=== PATIENT | male | born 1990 | race Caucasian/White ===

== ENCOUNTER 2017-02-19 13:53 | Inpatient (IN) | payer OTHER ==
[~2017-02-19] VITALS: Ht 172.7 cm; Wt 91.7 kg
[~2017-02-19 13:53] MED LIST: No Historical Meds
[2017-02-19] MEDS ORDERED: SERO1TAB PO (14:17)
[2017-02-19] MEDS ORDERED: ZOLO100T PO (14:17)
[2017-02-19 14:43] LABS: METHADONE URINE NEGATIVE (NEGATIVE)
[2017-02-19 14:44] LABS: MEAN CORPUSCULAR HEMOGLOBIN 31.5 pg (27.0-33.0); MEAN CORPUSCULAR HGB CONC 35.3 g/dl (32.0-36.5); MEAN CORPUSCULAR VOLUME 89.3 fl (80.0-96.0); RED CELL DISTRIBUTION WIDTH 13.4 % (11.5-14.5); WHITE BLOOD COUNT 15.9 K/mm3 (4.0-10.0)
[2017-02-19 15:07] LABS: ALBUMIN/GLOBULIN RATIO 1.18 (1.00-1.93); ALKALINE PHOSPHATASE 98 U/L (45-117); ALT/SGPT 77 U/L (12-78); ANION GAP 9 MEQ/L (8-16); AST/SGOT 39 U/L (15-37); BILIRUBIN,DIRECT 0.1 MG/DL (0.0-0.2); BILIRUBIN,TOTAL 0.4 MG/DL (0.2-1.0); BLOOD UREA NITROGEN 6 MG/DL (7-18); CALCIUM LEVEL 9.2 MG/DL (8.5-10.1); CARBON DIOXIDE LEVEL 25 MEQ/L (21-32); CHLORIDE LEVEL 107 MEQ/L (98-107); CREATININE FOR GFR 0.83 MG/DL (0.70-1.30); GLOMERULAR FILTRATION RATE > 60.0 (>60); GLUCOSE, FASTING 92 MG/DL (70-105); POTASSIUM SERUM 3.4 MEQ/L (3.5-5.1); SODIUM LEVEL 141 MEQ/L (136-145); TOTAL PROTEIN 7.4 GM/DL (6.4-8.2)
[2017-02-19] MEDS ORDERED: MOM 30ML SUSPENSION UDC PO PRN (16:15)
[2017-02-19] MEDS ORDERED: ACETAMINOPHEN TAB 650MG DOSE (2X325MG) PO PRN (16:15)
[2017-02-19] MEDS ORDERED: MAALOX 30 ML SUSP *UDC PO PRN (16:15)
[2017-02-19 16:56] VITALS: BP 140/90
[2017-02-19] MEDS: QUEtiapine FUMARATE 100 MG TAB PO SCH (22:06)
[2017-02-20 06:46] VITALS: BP 136/78
[2017-02-20] MEDS: SERTRALINE 100 MG TAB PO SCH (08:07)
[2017-02-20] MEDS: NICOTINE 21MG/24HR 1 EA TRANSDERMAL TD SCH (08:07)
[2017-02-20] MEDS: QUEtiapine FUMARATE 100 MG TAB PO SCH (08:07)
[2017-02-20] MEDS ORDERED: SERTRALINE 100 MG TAB PO SCH (09:00)
--- NOTE | 2017-02-20 15:03 | MHHPE ---
DATE OF ADMISSION: 02/19/2017 LEGAL STATUS AT ADMISSION: 9.39 legal status. 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 According to the record, the patient presented with a escort from [place], [place], to be evaluated for depression, suicidal ideation, and self-inflicted behavior. It is stated that he cut himself the left arm from wrist to elbow multiple times, and he was burning his right lower leg with cigarettes. During the interview today, the patient is partially cooperative. Appears angry, guarded, with poor eye contact, very soft monotone speech. Reports depression and frequent suicidal ideation and admits his self-inflicted behavior, cutting and burning his upper and lower extremities. He describes the events at admission as "I snapped at 10:30 p.m. Saturday. I started to think about killing myself. I got into the car and was searching for a place to kill myself. I called my , and after talking to her, I changed my mind, I went to a hospital, and I called my chain of command." During the interview, the patient is showing signs and symptoms of cluster B personality traits. The patient reports his energy being more or less normal, having no variation of the appetites. Sleep is very poor, by his report, waking up very frequent. He reports his self-esteem being normal. Overall, the patient's description of symptoms does not appear to be reliable. The patient appeared to be angry. He made statements such as "I'm not going to these stupid groups." "I don't like to be playing with my medication." "Things has not worked in the past." During the interview, there is no evidence of auditory or visual hallucinations, delusions, or any psychotic features. PAST MEDICAL HISTORY: The patient denies any acute medical problem. PAST PSYCHIATRIC HISTORY: The patient has been diagnosed of depression. The patient says that at one point, he was placed on Depakote but had to be stopped because of side effects and weight gain. The patient has never been on Lamictal. FAMILY HISTORY: The patient reports that both of his parents have been diagnosed of bipolar disorder. He has a sister who has anxiety and a brother who uses drugs. SUBSTANCE ABUSE HISTORY: The patient denies any current of past problem with drugs or alcohol. The patient says that he drinks at times but denies that this is a problem. SOCIAL HISTORY: The patient reports being raised by both parents. Denies any abuse or neglect. The patient denies any problems with socialization or ability to make friends. He reports that school was normal with average grades. He is with five children. Has a 6-year-old and 3-year-old daughter and triplets (they are boys and they are 1 year of age). The patient reports that has good support and gets along well with his chain of command. PSYCHIATRIC REVIEW OF SYSTEMS: Depression and mood disorder. The patient reports depression, insomnia, low energy. The patient has psychomotor retardation and suicidal thoughts. No evidence of davide. No distractibility, grandiosity, flight of ideas, pressured speech, or increased activity. Substance abuse disorder: The patient answers negative to the CAGE questionnaire. Anxiety disorder: The patient reports anxiety but denies symptoms of panic, agoraphobia, obsessive-compulsive disorder. The patient denies washing his hands repeatedly or checking things over and over. Somatization disorder: Screening for pain, conversion, gastrointestinal (GI), or sexual symptoms are negative. Eating disorder: Screening for dieting, use of laxatives, eating in binges is negative. Dementia/cognitive disorder: Screening for short- and long-term memory, orientation, and general information is negative for cognitive impairment. Psychotic disorder: There is no evidence of delusions, paranoia, grandiosity, or tenriism preoccupation. No hallucinations or looseness of associations. PHYSICAL EXAMINATION: As per physician doctor assistant. LABORATORIES AT ADMISSION: CBC shows white blood cells of 15.9, the rest within normal limits. CMP shows a potassium of 3.4, the rest within normal limits, except AST of 39. Urine drug screen was positive for benzodiazepine. Blood alcohol level is negative. MENTAL STATUS EXAMINATION: The patient is dressed in [facility]. The patient is partially cooperative. Speech is soft and monotone. Has poor eye contact. Mood is anxious and depressed. Affect is restricted, guarded. The patient is oriented to time, place, person, and situation. Maintains attention and concentration fairly. Instant recall, recent and remote memory are intact. Thought processes are coherent, logical, and goal-directed. The patient does not have auditory or visual hallucinations. The patient does not have paranoid, persecutory, somatic, grandiose, or tenriism delusions. The patient is reporting suicidal thoughts but no homicidal ideation. Judgment and insight are poor. DIAGNOSES: AXIS I: Unspecified depressive disorder, rule out major depressive disorder verus bipolar disorder, depressed episode. AXIS II: Rule out borderline personality disorder. AXIS III: Self-inflicted cuts on arms and self-inflicted pastor on right lower extremities. INITIAL TREATMENT PLAN: The patient was admitted on a 9.39 legal status. Complete history was obtained. With his permission, family will be contacted, and database will be expanded. His medication regimen will be reviewed and changed accordingly. He will be provided with protected environment. He will be treated with individual, group, and milieu therapies. He will also be provided with supportive psychoeducation. Discharge planning will commence immediately. Length of stay will be between3 and 7 days. Outpatient followup will be strongly recommended. The treatment plan will focus initially on depression, risk for suicide, and poor impulse control.
[2017-02-20 18:00] VITALS: BP 141/69
[2017-02-20] MEDS: QUEtiapine FUMARATE 200 MG TAB PO SCH (21:06)
[2017-02-20] MEDS: OXcarbazepine 150 MG TAB PO SCH (21:06)
[2017-02-20] MEDS: lamoTRIgine 25 MG TAB PO SCH (21:06)
--- NOTE | 2017-02-20 23:39 | HPE ---
DATE OF ADMISSION: 02/19/2017 HISTORY OF PRESENT ILLNESS: Please refer to psychiatric history and evaluation for further details on this admission. This examination and history is intended for medical issues, which may need treatment, followup, or consult on this 26-year-old male. FOOD ALLERGIES: Peppers. DRUG ALLERGIES: Haloperidol. PRIMARY CARE PROVIDER: [facility]. 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 EtOH (ethanol) on weekends. Smokes one pack of cigarettes per day. Recreational drug use: None. PAST MEDICAL HISTORY: Depression. PAST SURGICAL HISTORY: Negative. HOME MEDICATIONS: - Seroquel 100 mg by mouth twice a day - Zoloft 200 mg by mouth daily FAMILY HISTORY: Noncontributory. LABORATORY STUDIES: WBC 15.1, hemoglobin 16.1, hematocrit 45.5. Sodium 144, potassium 3.4, chloride 107, CO2 of 25, BUN 10, creatinine 6, AST 39, ALT 77. Urine was positive for benzodiazepines. REVIEW OF SYSTEMS: A 10-systems review was done. He complained of some pastor of the right lower leg and lacerations to the left inner forearm. Otherwise no complaints, unremarkable. PHYSICAL EXAMINATION: A 26-year-old cooperative male in no acute distress. Height 68 inches, weight 91.6 kg, body mass index (BMI) 30.7, temperature 97.9, pulse 91, respirations 18, blood pressure 132/86. Patient is alert and oriented times three. Pupils equal and reactive to light. Extraocular movements (EOMs) intact. Corneae and sclerae clear. Conjunctivae are normal. No facial asymmetry. Pharynx, tongue, gums pink and moist. Tongue is midline. Neck is supple without lymphadenopathy. No thyromegaly. No goiter. Chest clear to auscultation without wheeze or retraction. Heart is regular. Abdomen benign. Bowel sounds positive. Genitourinary/rectal not done. Extremities show equal strength, full range of motion. No cyanosis, clubbing, or edema. Peripheral pulses equal and palpable bilaterally. Skin: Left inner forearm has numerous scabbed superficial lacerations. No redness or drainage. Right lower leg anterior and calf area have approximately 8 cigarette pastor in various stages of healing. No drainage. Peripheral pulses equal and palpable bilaterally. IMPRESSION AND PLAN: Left upper arm superficial lacerations. Monitor for infection. Cigarette pastor, right lower legs. Bacitracin ointment twice a day. Monitor for infection. Psychiatric plan per psychiatry.
[2017-02-21 06:17] VITALS: BP 134/75
[2017-02-21 07:46] LABS: BASO # 0.1 K/mm3 (0.0-0.2); BASO % 0.8 % (0.0-1.0); EOS # 0.3 K/mm3 (0.0-0.50); LARGE UNSTAINED CELL # 0.2 K/mm3 (0.0-0.4); LARGE UNSTAINED CELL % 1.6 % (0.0-4.0); LYMPH # 2.3 K/mm3 (1.5-6.5); LYMPH % 19.6 % (24.0-44.0); MEAN CORPUSCULAR HEMOGLOBIN 31.5 pg (27.0-33.0); MEAN CORPUSCULAR HGB CONC 35.5 g/dl (32.0-36.5); MEAN CORPUSCULAR VOLUME 88.7 fl (80.0-96.0); MONO # 0.6 K/mm3 (0.0-0.8); MONO % 5.6 % (0.0-5.0); NEUTROPHILS # 7.6 K/mm3 (1.8-7.7); NEUTROPHILS % 69.5 % (36.0-66.0); PLATELET COUNT, AUTOMATED 245 k/mm3 (150-450); RED CELL DISTRIBUTION WIDTH 13.5 % (11.5-14.5)
[2017-02-21 08:18] LABS: ALBUMIN 3.7 GM/DL (3.2-5.2); ALBUMIN/GLOBULIN RATIO 1.12 (1.00-1.93); ALKALINE PHOSPHATASE 87 U/L (45-117); ALT/SGPT 77 U/L (12-78); ANION GAP 5 MEQ/L (8-16); AST/SGOT 46 U/L (15-37); BILIRUBIN,TOTAL 0.5 MG/DL (0.2-1.0); BLOOD UREA NITROGEN 13 MG/DL (7-18); CALCIUM LEVEL 8.9 MG/DL (8.5-10.1); CARBON DIOXIDE LEVEL 26 MEQ/L (21-32); CHLORIDE LEVEL 111 MEQ/L (98-107); CREATININE FOR GFR 0.82 MG/DL (0.70-1.30); GLOMERULAR FILTRATION RATE > 60.0 (>60); GLUCOSE, FASTING 82 MG/DL (70-105); POTASSIUM SERUM 4.3 MEQ/L (3.5-5.1); SODIUM LEVEL 142 MEQ/L (136-145)
[2017-02-21] MEDS: SERTRALINE 100 MG TAB PO SCH (08:33)
[2017-02-21] MEDS: OXcarbazepine 150 MG TAB PO SCH ×2 (08:33→20:22)
[2017-02-21] MEDS: NICOTINE 21MG/24HR 1 EA TRANSDERMAL TD SCH (08:44)
--- NOTE | 2017-02-21 15:30 | IPN ---
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 The patient stated that he was driving with his car, looking for a spot where he could kill himself. SUBJECTIVE: "I don't want my medication changed." OBJECTIVE: No major changes from yesterday. The patient has been showing cluster B traits. Patient appears angry and frustrated. Patient is not interacting with anybody. He is unwilling to go to groups, unwilling to engage in conversation or psychotherapy. Patient is only focused on discharge. Patient states that he came in voluntarily and he would like to go home. Patient appears depressed with sad, restricted facial expression and psychomotor retardation. I told the patient that I was going to ask the [facility] liaison to stop by and talk to him. MENTAL STATUS EXAMINATION: Patient is dressed in [facility]. Poor eye contact. Speech is poor, not invested in conversation. Mood is depressed and anxious. Affect is restricted, labile, appears angry and frustrated. No evidence of delusions or hallucinations. Could not test attention, concentration, and memory. Patient is minimizing all the events that led to the admission and is denying suicidal or homicidal ideation, but he stated during the first interview that he was driving with his car, looking for a spot where he could kill himself. Insight and judgment is poor. ASSESSMENT: 1. Depression. 2. Suicidal ideation. 3. Personality traits. PLAN: 1. Lamictal 25 mg by mouth nightly. The plan is to increase the Lamictal slowly up to therapeutic level. 2. Trileptal 75 mg by mouth twice a day. Since Lamictal is going to take a long time to be at therapeutic level, will use Trileptal in the meantime and then taper and discontinue. 3. Seroquel 200 mg by mouth nightly. Patient has slept better with Seroquel 200 nightly. He was taking 100 mg by mouth twice a day, but says that one of the problems was insomnia. 4. Zoloft 200 mg by mouth every morning. He has been on Zoloft for quite some time. He will evaluate the patient again and probably switch to another antidepressant agent. 5. Continue medication management, individual and group therapy as tolerated by patient.
[2017-02-21 18:03] VITALS: BP 128/60
[2017-02-21] MEDS: QUEtiapine FUMARATE 200 MG TAB PO SCH (20:22)
[2017-02-21] MEDS: lamoTRIgine 25 MG TAB PO SCH (20:22)
[2017-02-22 06:13] VITALS: BP 121/74
[2017-02-22] MEDS: OXcarbazepine 150 MG TAB PO SCH ×2 (08:44→20:50)
[2017-02-22] MEDS: SERTRALINE 100 MG TAB PO SCH (08:44)
[2017-02-22 18:00] VITALS: BP 129/62
[2017-02-22] MEDS: QUEtiapine FUMARATE 200 MG TAB PO SCH (20:50)
[2017-02-22] MEDS: lamoTRIgine 25 MG TAB PO SCH (20:50)
--- NOTE | 2017-02-22 22:54 | IPN ---
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 The patient stated that he was driving his car looking for a stop where he could kill himself. SUBJECTIVE: "When am I going home?" OBJECTIVE: The patient is slightly more open for conversation, although his focus is on discharge issues only. The patient is reporting significant improvement and denies suicidal ideation; however, he is not reliable. His facial expression is restricted. He has psychomotor retardation. He has been going to some psychotherapeutic activities in the unit. His came for a visit yesterday and she said that the patient had two rough deployments and that the only time he is able to talk about the deployments is when he is intoxicated with alcohol. During the interview, there is no evidence of psychotic symptoms. The patient continues to be guarded and it is difficult to get objective information from him. MENTAL STATUS EXAMINATION: The patient is dressed in [facility]. Has poor eye contact. Speech is poor, soft and monotone. Mood is depressed and anxious. Affect is restricted. The patient appears angry and frustrated, although has improved slightly from yesterday. There is no evidence of delusions or hallucinations. Could not test attention, concentration and memory. The patient is minimizing all the events that led to the admission. Denies suicidal or homicidal ideations, but he is focused on discharge and is not reliable. Insight and judgment are poor. ASSESSMENT: 1. Depression. 2. Suicidal ideation. 3. Personality traits. PLAN: 1. Continue with Lamictal 25 mg by mouth at bedtime. The plan is to increase Lamictal up to a therapeutic level. 2. Continue Trileptal 75 mg by mouth twice a day. This medication will be tapered when Lamictal is increased to a therapeutic level. 3. Continue Seroquel 200 mg by mouth at bedtime. 4. Continue Zoloft 200 mg by mouth every morning. 5. Continue medication management, individual and group therapy.
[2017-02-23 06:37] VITALS: BP 119/56
[2017-02-23] MEDS: SERTRALINE 100 MG TAB PO SCH (08:51)
[2017-02-23] MEDS: OXcarbazepine 150 MG TAB PO SCH ×2 (08:51→20:13)
[2017-02-23 18:01] VITALS: BP 133/64
[2017-02-23] MEDS: lamoTRIgine 25 MG TAB PO SCH (20:12)
[2017-02-23] MEDS: QUEtiapine FUMARATE 200 MG TAB PO SCH (20:12)
[2017-02-24 06:42] VITALS: BP 96/48
[2017-02-24] MEDS: SERTRALINE 100 MG TAB PO SCH (08:10)
[2017-02-24] MEDS: OXcarbazepine 150 MG TAB PO SCH ×2 (08:10→20:31)
--- NOTE | 2017-02-24 11:28 | IPN ---
DATE OF SERVICE: 02/23/2017 The patient today states "I'm feeling better." He says his mood is 2/10, where the closer to 10 is the most depressed. He says he is not feeling depressed, and he is sleeping good at this point, and denies being suicidal. MENTAL STATUS EXAMINATION: This patient is alert and oriented times three. Eye contact is fair. Psychomotor activity is normal. He is verbally spontaneous. There is no formal thought disorder noted. His mood is good and affect full range and appropriate. He is not psychotic, suicidal, or homicidal. Concentration is fair. Memory intact. Insight and judgment is fair. DIAGNOSIS: Unspecified depressive disorder. TREATMENT PLAN: At this point, the patient will be further observed and evaluated for continued stabilization of his mood and continued resolution of suicidal ideations. ASHLEY
[2017-02-24] MEDS ORDERED: AZITHROMYCIN 250 MG TAB PO ONE (16:30)
[2017-02-24 18:00] VITALS: BP 154/85
[2017-02-24] MEDS: lamoTRIgine 25 MG TAB PO SCH (20:31)
[2017-02-24] MEDS: QUEtiapine FUMARATE 200 MG TAB PO SCH (20:31)
[2017-02-24] MEDS ORDERED: DOXYCYCLINE HYCLATE 100 MG TAB PO SCH (21:00)
--- NOTE | 2017-02-25 03:36 | IPN ---
DATE OF SERVICE: 02/24/2017 The patient states that he is doing good. He has no complaints. He said he slept well. MENTAL STATUS EXAMINATION: He is alert and oriented times three. Eye contact is very good. Psychomotor activity is normal. There is no formal thought disorder. Mood is good. Affect is full range and appropriate. He is not psychotic, suicidal, homicidal. Concentration is fair. Memory is intact. Insight and judgment is fair. DIAGNOSIS: Unspecified depressive disorder. TREATMENT PLAN: At this point, the patient is fairly stable and we will continue to monitor him for continued stabilization of his mood and for continued resolution of his suicidal ideations.
[2017-02-25] MEDS: OXcarbazepine 150 MG TAB PO SCH (08:23)
[2017-02-25] MEDS: SERTRALINE 100 MG TAB PO SCH (08:23)
[2017-02-25] MEDS: NICOTINE POLACRILEX 2 MG GUM PO PRN ×3 (15:47→22:24)
[2017-02-25 18:00] VITALS: BP 138/68
[2017-02-25] MEDS: QUEtiapine FUMARATE 200 MG TAB PO SCH (20:11)
[2017-02-25] MEDS ORDERED: lamoTRIgine 25 MG TAB PO SCH (21:00)
--- NOTE | 2017-02-25 21:11 | IPN ---
DATE: 02/25/2017 VITAL SIGNS: Temperature 98.7, pulse 89, respirations 16, blood pressure 154/85. CURRENT MEDICATIONS: - Trileptal 75 mg twice a day - Lamictal 25 mg nightly - Seroquel 200 mg nightly - Zoloft 200 mg every morning LABORATORY DATA: Urine screen on 02/19/2017, was negative except for positive for benzodiazepines. 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 Patient had been working at [place], [place] with his [employer] unit but had developed depression and had a suicide attempt to cut himself on his left arm multiple times. He was also burning his right lower leg with cigarettes. Patient was quite angry and guarded at the time of admission. Patient was seen by Dr. Renae. Patient has a history of major depression, treated at [facility] on the Seroquel and Zoloft combination. Patient had gone off the medications temporarily while down at [place], which only made his depression worse. Dr. Renae restarted the Seroquel and Zoloft, but also added Trileptal and Lamictal. Patient has been oppositional here in the hospital milieu. He has attended a few groups, but in general has been refusing to attend the various therapy group offerings. Patient does have a history of severe depressive episodes in the past where he has tried to hang himself or taken overdoses at least four different times. He has been hospitalized at [facility] and [facility] in the past. He was on Depakote at that time which caused a 40 pound weight gain. Both of his parents have been diagnosed with bipolar but the patient himself denies any history of manic episodes. He denies any history of racing thoughts. Patient reports his psychiatrist is Lieutenant Colonel Dr. Turk, who was contacted at [phone] Turk last saw the patient in November, at which point in time the patient had been doing reasonably well on the combination Seroquel and Zoloft. The patient is quite oppositional here in the unit, refusing to cooperate with the hospital milieu, despite being a soldier and under orders. Patient has shown poor judgment on the unit by cursing at staff, including myself, and refusing to cooperate, but has not shown any homicidal or suicidal behavior. Patient appears to have reached maximal hospital benefit. He claims he will discontinue the Lamictal and Trileptal once he is discharged. The patient is advised that I am discontinuing the Trileptal but that I would recommend that he be maintained on the Lamictal. He is warned about the risk of Rodrigues-Reed syndrome. MENTAL STATUS EXAMINATION: At the time of discharge, the patient is alert and oriented, but he is not cooperative. He is irritable, showing poor judgment. He is cursing. He demands discharge. He appears entitled. He storms out of my office, slamming the door, cursing me both in the office and out in the hospital corridor. He denies any psychotic symptoms. No signs of hallucinations, paranoia, delusional beliefs, or thought disorder. Insight appears poor. Judgment appears poor, but no acute signs of dangerousness. No signs of organicity. Grooming and hygiene appear good. DIAGNOSES: 1. Major depression, recurrent, moderate severity. 2. Personality disorder. ASSESSMENT: While the patient could benefit from further inpatient care due to his poor attitude and oppositional defiant behavior, he is no longer appropriate for our unit. Patient is not currently a danger to self or others, so may be released to the care of the outpatient facility at [place]. Staff will [place] Patient's Trileptal to be weaned off. Patient will discuss with Dr. Turk whether to continue the Lamictal or discontinue it.
[2017-02-26 06:22] VITALS: BP 127/60
[2017-02-26 06:55] LABS: MEAN CORPUSCULAR HEMOGLOBIN 31.9 pg (27.0-33.0); MEAN CORPUSCULAR VOLUME 91.2 fl (80.0-96.0); RED CELL DISTRIBUTION WIDTH 13.2 % (11.5-14.5); WHITE BLOOD COUNT 10.8 K/mm3 (4.0-10.0)
[2017-02-26 07:12] LABS: ALBUMIN 3.7 GM/DL (3.2-5.2); ALBUMIN/GLOBULIN RATIO 1.09 (1.00-1.93); ALKALINE PHOSPHATASE 84 U/L (45-117); ALT/SGPT 57 U/L (12-78); ANION GAP 4 MEQ/L (8-16); AST/SGOT 23 U/L (15-37); BILIRUBIN,TOTAL 0.2 MG/DL (0.2-1.0); BLOOD UREA NITROGEN 9 MG/DL (7-18); CALCIUM LEVEL 8.6 MG/DL (8.5-10.1); CARBON DIOXIDE LEVEL 28 MEQ/L (21-32); CHLORIDE LEVEL 108 MEQ/L (98-107); CREATININE FOR GFR 0.86 MG/DL (0.70-1.30); GLOMERULAR FILTRATION RATE > 60.0 (>60); GLUCOSE, FASTING 88 MG/DL (70-105); POTASSIUM SERUM 3.9 MEQ/L (3.5-5.1); SODIUM LEVEL 140 MEQ/L (136-145); TOTAL PROTEIN 7.1 GM/DL (6.4-8.2)
[2017-02-26] MEDS: SERTRALINE 100 MG TAB PO SCH (08:25)
[2017-02-26] MEDS: NICOTINE POLACRILEX 2 MG GUM PO PRN (08:26)
[2017-02-26] MEDS ORDERED: LAMI25TA PO (08:34)
[2017-02-26] MEDS ORDERED: OXcarbazepine 150 MG TAB PO SCH (09:00)
--- NOTE | 2017-02-27 14:02 | MHDS ---
DATE OF ADMISSION: 02/19/2017 DATE OF DISCHARGE: 02/26/2017 VITAL SIGNS: Temperature 98.0, pulse 66, respirations 20, blood pressure 127/60. LABORATORY DATA: CBC and differential within normal limits except for a WBC elevated at 10.8. Chemistry is normal except for elevated chloride at 108. The patient's anion gap is low at 4. The patient had two elevated AST levels at 39 and 46 on 02/19 and 02/21/2017. Repeat on 02/26/2017 was 23, which is within normal limits. DISCHARGE DIAGNOSES: 1. Depression, recurrent and moderate severity. 2. Mixed personality disorder. DISCHARGE MEDICATIONS: - Lamictal 25 mg two tablets at night - Seroquel 100 mg twice a day - Zoloft 200 mg daily CHIEF COMPLAINT: The patient cut his left arm multiple times and burned his right lower leg with cigarettes. 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 As mentioned above, he cut his left arm multiple times and burned his right lower leg with cigarettes. The patient was quite angry at the time of admission. He was guarded. He had poor eye contact. The patient did report a history of frequent depression and suicidal ideation. The patient claims that he "snapped." The patient does have a history of depression. He was in treatment at [facility] and [facility] in the past and placed on Depakote at that time. The patient had a 40 pound weight gain on that product so it was discontinued. He claims that it was not helpful for his mental status functioning. He is currently seeing a psychiatrist, Dr. Lieutenant Colonel Turk, who was contacted to coordinate care. Dr. Turk last saw the patient in November. The patient was stable at that time. The patient found being stationed at [place] very stressful. He was away from his friends and family. He has been having some marital conflict. He stopped his medications, claiming that they no longer worked and promptly his condition worsened leading to the events mentioned above. PROGRESS ON THE UNIT: The patient was seen by Dr. Renae at the time of admission. He was continued on his Seroquel but it was switched to 200 mg by mouth at night. Zoloft was maintained at current dosage. The patient was added Trileptal 75 mg twice a day. The patient was also given Lamictal 25 mg at night. The patient was quite oppositional on the unit. He isolated. He did not become involved in the hospital milieu. He was resistant to changes in his medication, claiming that his outpatient psychiatrist could manage his medications. When the patient was seen by myself on 02/25/2017 for the first time, the patient was quite oppositional and defiant. He demanded discharge, claiming that he had showed no signs of dangerousness while on the unit. When informed that no discharge date could be set up until I coordinated care with his outpatient psychiatrist, he started shouting profanities, storming out of my office and slamming the door. Staff reported that he continued to swear and use profanities toward the nursing staff afterwards. Dr. Turk was available by phone later on that day and issued no objection to accepting the patient back to outpatient services. The indication for the Trileptal was unclear so that medication was weaned off. The patient's Lamictal was increased to 50 mg at night. The patient is educated as to risk of Sid-Reed syndrome. The patient claimed that he would stop the Lamictal upon discharge. He was urged to continue on it and discuss the Lamictal with his psychiatrist. The patient did apologize to me today for his behavior from yesterday. He reported that taking the Seroquel 100 mg in the morning helps him with his irritability and his temper control. MENTAL STATUS EXAMINATION: The patient is alert and oriented. He is highly irritable and agitated the day before discharge. However, on the day of discharge, he was more modulated and in control of his temper. He denied any racing thoughts. He denies being depressed. Denied being homicidal or suicidal. Anxiety was minimal. Insight appeared fair. Judgment appeared fair. No current signs of impulsivity of dangerousness. No signs of psychosis. Not hearing voices. No paranoid or thought disorder. No signs of organicity. Grooming and hygiene appeared good. ASSESSMENT: The patient appears to have reached maximal hospital benefit. He appeared to have significant behavioral issues, which prevented our unit from providing more intensive treatment. As the patient showed no signs of being a danger to himself or others, he was discharged to return back to [place]. PLAN: Psychotropics as above. Followup with [place] [facility].
== END 2017-02-26 11:30 | disposition home or self-care (01) | DRG 885 ==
LOC: M ED 13:53 → M ED INP 16:10 → M PSY 16:45
PROVIDERS: ADMIT Psychiatry & Neurology Psychiatry; ATTEND Psychiatry & Neurology Psychiatry
DX: F33.1 Major depressive disorder, recurrent, moderate (principal); F60.89 Other specific personality disorders; Z79.899 Other long term (current) drug therapy; Z91.018 Allergy to other foods; Z88.8 Allergy status to other drugs, medicaments and biological substances; F17.210 Nicotine dependence, cigarettes, uncomplicated; S41.112A Laceration without foreign body of left upper arm, initial encounter; T24.001A Burn of unspecified degree of unspecified site of right lower limb, except ankle and foot, initial encounter; X08.8XXA Exposure to other specified smoke, fire and flames, initial encounter; Y92.139 Unspecified place military base as the place of occurrence of the external cause; Y93.89 Activity, other specified; Y99.9 Unspecified external cause status

== ENCOUNTER 2017-06-23 11:51 | Inpatient (IN) | payer OTHER ==
[~2017-06-23] VITALS: Ht 172.7 cm; Wt 96.0 kg
[~2017-06-23 11:51] MED LIST changes: +LAMI25TA PO; +SERO1TAB PO; +ZOLO100T PO
[2017-06-23] MEDS ORDERED: MELA3TAB49 PO (12:05)
[2017-06-23 14:46] LABS: MEAN CORPUSCULAR HEMOGLOBIN 30.8 pg (27.0-33.0); MEAN CORPUSCULAR HGB CONC 36.2 g/dl (32.0-36.5); MEAN CORPUSCULAR VOLUME 84.9 fl (80.0-96.0); PLATELET COUNT, AUTOMATED 394 10^3/uL (150-450); RED CELL DISTRIBUTION WIDTH 12.7 % (11.5-14.5); WHITE BLOOD COUNT 13.1 10^3/uL (4.0-10.0)
[2017-06-23 15:23] LABS: ALBUMIN 3.8 GM/DL (3.2-5.2); ALBUMIN/GLOBULIN RATIO 1.03 (1.00-1.93); ALKALINE PHOSPHATASE 100 U/L (45-117); ALT/SGPT 110 U/L (12-78); ANION GAP 9 MEQ/L (8-16); AST/SGOT 70 U/L (7-37); BILIRUBIN,DIRECT < 0.1 MG/DL (0.0-0.2); BILIRUBIN,TOTAL 0.2 MG/DL (0.2-1.0); BLOOD UREA NITROGEN 10 MG/DL (7-18); CALCIUM LEVEL 8.7 MG/DL (8.5-10.1); CARBON DIOXIDE LEVEL 26 MEQ/L (21-32); CHLORIDE LEVEL 107 MEQ/L (98-107); CREATININE FOR GFR 0.72 MG/DL (0.70-1.30); GLOMERULAR FILTRATION RATE > 60.0 (>60); GLUCOSE, FASTING 116 MG/DL (70-105); POTASSIUM SERUM 3.7 MEQ/L (3.5-5.1); SODIUM LEVEL 142 MEQ/L (136-145); TOTAL PROTEIN 7.5 GM/DL (6.4-8.2)
[2017-06-23 16:35] LABS: METHADONE URINE NEGATIVE (NEGATIVE)
[2017-06-23] MEDS ORDERED: MAALOX 30 ML SUSP *UDC PO PRN (18:30)
[2017-06-23] MEDS ORDERED: traZODone 50 MG TAB PO PRN (18:30)
[2017-06-23] MEDS ORDERED: MOM 30ML SUSPENSION UDC PO PRN (18:30)
[2017-06-23] MEDS ORDERED: ACETAMINOPHEN TAB 650MG DOSE (2X325MG) PO PRN (18:30)
[2017-06-23 20:45] VITALS: BP_SYST 134; BP_SYST 158; BP_DIAS 88; BP_DIAS 91
[2017-06-24 07:11] VITALS: BP 133/55
[2017-06-24] MEDS: NICOTINE POLACRILEX 2 MG GUM PO PRN ×2 (12:32→17:07)
[2017-06-24 13:11] VITALS: BP 158/91
--- NOTE | 2017-06-24 15:29 | HPE ---
DATE OF ADMISSION: 06/23/2017 HISTORY OF PRESENT ILLNESS: Please refer to the psychiatric history and evaluation for further details on this admission. This examination and history is intended for medical issues, which may need treatment, followup or consultation on this 27-year-old male. FOOD ALLERGIES: PEPPERS. DRUG ALLERGIES: HALOPERIDOL. [facility] 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 The youngest are triplets. EtOH - he states this was the first time he drank since February. Smokes - one pack of cigarette per day. Recreational drug use - none. PAST MEDICAL HISTORY: Depression. PAST SURGICAL HISTORY: [place] teeth extraction. HOME MEDICATIONS: - Seroquel 100 mg by mouth twice a day - sertraline 200 mg by mouth daily - melatonin 300 mg by mouth nightly LABORATORY STUDIES: WBC 15.1, hemoglobin 15.3, hematocrit 45, platelets 494. Electrolytes normal. BUN and creatinine are 10 and 0.72. AST is 70, ALT is 110. 10-systems review was done. Patient had no complaints. PHYSICAL EXAMINATION: 27-year-old, cooperative male, in no acute distress. Height 68 inches. Weight 95 kg. Body mass index (BMI) 31.8. Blood pressure 137/80. Pulse 90. Respirations 16. Temperature 99. Patient is alert and oriented times. three Pupils equal and reactive to light. Extraocular movements (EOMS) intact. Cornea and sclerae clear. Conjunctivae was normal. No facial asymmetry. Pharynx, tongue, and gums pink and moist. Tongue is midline. Neck supple, without lymphadenopathy. No thyromegaly. No goiter. Carotids 2+, without bruit. Chest clear to auscultation, without wheeze or retraction. Heart is regular. Abdomen benign. Bowel sounds positive. Genitourinary ()/rectal not done. Extremities: No cyanosis, clubbing or edema. Peripheral pulses equal and palpable bilaterally. Skin is warm and dry. Outer left lower forearm shows a superficial 6 inch cut, scabbed, no redness or drainage. IMPRESSION/PLAN: Psychiatric - plan per psychiatry. Elevated liver function tests (LFTs). Will order repeat in the a.m. If they do not trend down, will order ultrasound. Superficial laceration left forearm. No redness or drainage monitor for infection. No other acute medical issues. MTDD
[2017-06-24] MEDS ORDERED: PARoxetine 10MG TABLET PO ONE (15:45)
[2017-06-24 18:00] VITALS: BP 140/85
--- NOTE | 2017-06-24 19:10 | MHHPE ---
DATE OF ADMISSION: 06/23/2017 LEGAL STATUS AT ADMISSION: 9.39 legal status CHIEF COMPLAINT: "I was going to kill myself." HISTORY OF PRESENT ILLNESS: 27-year-old male with a history of bipolar disorder, admitted to our unit on a 9.39 legal status. According to the records, the patient was brought to our emergency department by [place] police department to be evaluated for depression and suicidal ideation. The patient stated that "I was going to kill myself." He was making statements such as "I want to every day of my life." The patient tied a noose with an extension cord, however, he did not follow through, thinking about his 3-year-old daughter. He reports that he misses his five children, that they reside with his mother in [place]. "I just have nothing to live for." The patient states that he cannot identify any specific stressors. He has mood swings, especially towards depression and they "come out of the blue." During the evaluation at the emergency department, it is reported that he broke his urine sample cup and cut himself superficially on the left forearm. The patient also reported that he used to do self mutilation. The patient was in our unit in February 2017. During the interview today, the patient reports severe depression with low energy. The patient states that he has stopped drinking since February when he left our unit and only did it shortly before this admission. He says that his depressive episodes are not reactive, they are coming out of the blue and he cannot come up with a stressor. He says that he and his ex- are getting along well and do not see any reason of stressor or frustration in this regard. His parents were both diagnosed with bipolar disorder, by his report. During his last admission to our unit, he was started on Lamictal, but says that when he returned to [place] he asked the doctor to discontinue it. During the interview, there is no evidence of psychotic symptoms. No auditory or visual hallucinations or delusions. PSYCHIATRIC HISTORY: As above. The patient has been diagnosed of bipolar disorder. This is his second admission to our facility. PAST MEDICAL HISTORY: The patient denies any acute medical problems. FAMILY HISTORY: As above. The patient reports that his parents both were diagnosed of bipolar disorder and has a sister with anxiety and a brother who uses drugs. SUBSTANCE ABUSE HISTORY: The patient denies any current problems with drugs or alcohol, although he admits that he drank before admission. He says that he stopped drinking completely after he was discharged from our unit in February. SOCIAL HISTORY: The patient was raised by both parents. Denied any abuse or neglect during childhood. Denied any problem at school. Denied problems socializing or with his ability to make friends. He is now with five children. 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 PSYCHIATRIC REVIEW OF SYSTEMS: Substance abuse disorder: The patient answers negative to CAGE questionnaire. Anxiety disorder: Denies panic or agoraphobia. Denies obsessive compulsive disorder. Denies washing hands repeatedly. Denies checking things over and over. Somatization disorder. Screening for pain, conversion, gastrointestinal, or sexual symptoms are negative. Eating disorder: Screening for dieting, use of laxatives, eating in binges is negative. Cognitive disorder: Screening for short and senior living memory impairment, orientation and general information is negative for cognitive disorder. Psychotic disorders: No evidence of delusions. No paranoia. No grandiosity or taoism preoccupation. No hallucinations. No looseness of associations. PHYSICAL EXAMINATION: As per physician's accounting assistant. LABORATORY DATA: Complete blood count (CBC) showed white blood cell count of 13.1. CMP is unremarkable. AST 70, ALT of 110. TSH within normal limits. Urine drug screen was negative. Blood alcohol level is 0.16. MENTAL STATUS EXAMINATION: The patient is dressed in [facility]. The patient is partially cooperative. Has poor eye contact. Speech is soft and monotone. Mood is depressed and anxious. Affect is less restricted. Patient is oriented to time, place, person, and situation. Maintains attention and concentration correctly. Instant recall, recent and remote memory are intact. Thought processes are coherent, logical and goal directed. The patient does not have auditory or visual hallucinations. The patient does not have paranoid, persecutory, somatic, grandiose or taoism delusions. The patient reports suicidal thoughts, no homicidal ideation. Insight and judgment are poor. DIAGNOSES: Dunnegan I: Unspecified depressive disorder. Bipolar disorder by history. Alcohol abuse. Dunnegan II: Deferred. Dunnegan III: None acute. INITIAL TREATMENT PLAN: Patient was admitted on a 9.39 legal status. Complete history was obtained. With his permission, family will be contacted, and database will be expanded. His medication regimen will be reviewed and changed accordingly. He will be provided with protected environment. He will be treated with individual, group, and milieu therapies. He will also receive supportive psychoeducation. Discharge planning will commence immediately. Length of stay will be between 7 to 10 days. Outpatient followup will be strongly recommended. The treatment plan will focus initially on depression, risk for suicide and alcohol abuse.
[2017-06-24] MEDS: OXcarbazepine 150 MG TAB PO SCH (20:54)
[2017-06-24] MEDS: lamoTRIgine 25 MG TAB PO SCH (20:54)
[2017-06-24] MEDS ORDERED: QUEtiapine FUMARATE 100 MG TAB PO SCH (21:00)
[2017-06-25 07:09] VITALS: BP 134/63
[2017-06-25] MEDS ORDERED: PARoxetine 10MG TABLET PO SCH (09:00)
[2017-06-25] MEDS: OXcarbazepine 150 MG TAB PO SCH ×2 (09:27→20:02)
[2017-06-25] MEDS: NICOTINE POLACRILEX 2 MG GUM PO PRN ×3 (09:28→20:02)
[2017-06-25] MEDS ORDERED: QUEtiapine FUMARATE 50 MG TAB PO PRN (15:45)
--- NOTE | 2017-06-25 17:26 | MHIPN ---
DATE: 06/25/2017 27-year-old male with history of depression and alcohol abuse admitted on a 9.39 legal status for depression and suicidal ideation. MEDICATIONS: - Seroquel 100 mg by mouth nightly - Paxil 10 mg by mouth every morning - Trileptal 75 mg by mouth twice a day - Lamictal 25 mg by mouth nightly SUBJECTIVE: "I think I want to continue taking the medication as I was before." OBJECTIVE: Patient continues depressed, says that he has excessive sedation from the medication. Patient is able to contract for safety while in the hospital. There is no evidence of psychotic symptoms. No auditory or visual hallucinations or delusions. MENTAL STATUS EXAMINATION: Patient dressed in [facility]. Patient has fair eye contact, is cooperative during exam. Speech is slow and monotone. Mood is depressed and anxious. Affect is restricted. No evidence of delusions or hallucinations. Memory is fair. Patient is fully oriented. Associations are intact. Thinking is logical. Thought content is appropriate. Patient is able to contract for safety while in the hospital. Insight and judgment is limited. ASSESSMENT: 1. Depression. 2. Suicidal ideation. 3. Alcohol abuse. PLAN: 1. Restart sertraline at 100 mg by mouth daily. 2. Decrease Seroquel to 50 mg by mouth nightly plus 50 as needed for insomnia. 3. Increase Trileptal to 150 mg by mouth twice a day. 4. Increase Paxil to 20 mg by mouth every morning. 5. Continue Lamictal 25 mg by mouth nightly.
[2017-06-25 18:19] VITALS: BP 130/58
[2017-06-25] MEDS: SERTRALINE 100 MG TAB PO SCH (20:01)
[2017-06-25] MEDS: QUEtiapine FUMARATE 50 MG TAB PO SCH (20:02)
[2017-06-25] MEDS: lamoTRIgine 25 MG TAB PO SCH (20:02)
[2017-06-25] MEDS ORDERED: PARoxetine 10MG TABLET PO ONE (21:00)
[2017-06-26 06:25] VITALS: BP 123/58
[2017-06-26] MEDS: PARoxetine 20 MG TAB PO SCH (08:18)
[2017-06-26] MEDS: OXcarbazepine 150 MG TAB PO SCH ×2 (08:18→21:10)
[2017-06-26] MEDS: NICOTINE POLACRILEX 2 MG GUM PO PRN (08:18)
[2017-06-26 18:00] VITALS: BP 131/72
[2017-06-26] MEDS: SERTRALINE 100 MG TAB PO SCH (21:10)
[2017-06-26] MEDS: lamoTRIgine 25 MG TAB PO SCH (21:10)
[2017-06-26] MEDS: QUEtiapine FUMARATE 50 MG TAB PO SCH (21:10)
[2017-06-27 06:25] VITALS: BP 104/52
--- NOTE | 2017-06-27 06:34 | IPN ---
DATE: 06/26/2017 HISTORY: A 27-year-old male with history of depression admitted to our unit on a 939 legal status. The patient reported suicidal thoughts at admission and he made a noose, but could not follow through and requested help. MEDICATIONS: - sertraline 100 mg by mouth every morning - Seroquel 50 mg by mouth at bedtime plus 50 mg as needed for insomnia - Trileptal 150 mg by mouth twice a day - Paxil 20 mg by mouth every morning - Lamictal 25 mg by mouth at bedtime SUBJECTIVE: "I would like to go home." OBJECTIVE: The patient is reported improvement and denying suicidal ideation; however, at this point, I do not think he is reliable. He has flat, restricted facial expression, has psychomotor retardation. The patient is asking to be switched to the medications he was taking before admission. No evidence of psychotic symptoms. No auditory or visual hallucinations or delusions. MENTAL STATUS EXAMINATION: Patient dressed in [facility]. Patient has fair eye contact. Is cooperative. Speech is slow and monotone. Mood is depressed and anxious. Affect is restricted. No delusions or hallucinations. Memory is fair. Patient is fully oriented. Associations are intact. Thinking is logical. Thought content is appropriate. The patient is able to contract for safety during his hospitalization. Insight and judgment are limited. ASSESSMENT: 1. Depression. 2. Suicidal ideation. PLAN: 1. Continue Paxil 20 mg by mouth every morning. 2. Continue Seroquel 50 mg by mouth at bedtime. 3. Continue Trileptal 150 mg by mouth twice a day. 4. Continue Zoloft 100 mg by mouth at bedtime. 5. Continue Lamictal 25 mg by mouth at bedtime. MTDD
[2017-06-27] MEDS: OXcarbazepine 150 MG TAB PO SCH (08:42)
[2017-06-27] MEDS: NICOTINE POLACRILEX 2 MG GUM PO PRN ×2 (08:42→20:32)
[2017-06-27] MEDS: PARoxetine 20 MG TAB PO SCH (08:42)
[2017-06-27 18:00] VITALS: BP 148/69
[2017-06-27] MEDS: QUEtiapine FUMARATE 50 MG TAB PO SCH (20:30)
[2017-06-27] MEDS: lamoTRIgine 25 MG TAB PO SCH (20:30)
[2017-06-27] MEDS: OXcarbazepine 300 MG TAB PO SCH (20:30)
--- NOTE | 2017-06-28 03:32 | MHIPN ---
DATE OF SERVICE: 06/27/2017 HISTORY: 27-year-old male with history of depression admitted to our unit on a 9.39 legal status. Patient reported suicidal thoughts at admission and he made a noose, but he could not follow through and requested help. MEDICATIONS: - sertraline 100 mg by mouth nightly - Lamictal 25 mg by mouth nightly - Trileptal 150 mg by mouth twice a day - Seroquel 50 mg by mouth nightly - Paxil 20 mg by mouth every morning SUBJECTIVE: "I talked to my captain and I'm going extermination supervisor." OBJECTIVE: No major changes. Patient continues with sad, restricted facial expression, psychomotor retardation, very little interaction with other patients and staff. There is no evidence of psychotic symptoms. Patient is compliant with medication. MENTAL STATUS EXAMINATION: Patient dressed in [facility]. Patient has fair eye contact. Speech is slow and monotone. Mood is depressed and anxious. Affect is restricted. No delusions or hallucinations. Memory is fair. Patient is fully oriented. Associations are intact. Thinking is logical. Thought content is appropriate. Patient is able to contract for safety during his hospitalization. Insight and judgment is limited. ASSESSMENT: 1. Depression. 2. Suicidal ideation. PLAN: 1. Continue Paxil 20 mg by mouth every morning. 2. Continue Seroquel 50 mg by mouth nightly. 3. Increase Trileptal to 300 mg by mouth twice a day. 4. Increase Lamictal to 25 mg by mouth twice a day. 5. Discontinue Zoloft. 6. Continue medication management, individual and group therapy.
[2017-06-28 06:23] VITALS: BP 118/58
[2017-06-28] MEDS: NICOTINE POLACRILEX 2 MG GUM PO PRN ×2 (07:40→18:03)
[2017-06-28] MEDS: OXcarbazepine 300 MG TAB PO SCH ×2 (08:32→20:48)
[2017-06-28] MEDS: PARoxetine 20 MG TAB PO SCH (08:32)
[2017-06-28] MEDS: lamoTRIgine 25 MG TAB PO SCH ×2 (08:32→20:48)
[2017-06-28 18:00] VITALS: BP 156/67
[2017-06-28] MEDS: QUEtiapine FUMARATE 50 MG TAB PO SCH (20:48)
--- NOTE | 2017-06-29 03:08 | MHIPN ---
DATE OF SERVICE: 06/28/2017 HISTORY: 27-year-old male with history of depression admitted to our unit on a 9.39 legal status. Patient reported suicidal thoughts. He made a noose before admission, but he could not go through thinking about his children. MEDICATIONS: - Paxil 20 mg by mouth every morning - Seroquel 50 mg by mouth nightly - Trileptal 300 mg by mouth twice a day - Lamictal 25 mg by mouth twice a day SUBJECTIVE: "I'm going to go to [facility]." OBJECTIVE: Patient continues depressed with sad, restricted facial expression, psychomotor retardation. Patient is guarded. He interacts with other patients and staff minimally. Patient is somewhat minimizing the symptoms in order to be discharged, but he accepts to go to prison. MENTAL STATUS EXAMINATION: Patient dressed in [facility]. Patient has fair eye contact. Speech is slow and monotone. Mood is depressed and anxious. Affect is restricted. There is no evidence of delusions or hallucinations. Memory is fair. Patient is fully oriented. Associations are intact. Thinking is logical. Thought content is appropriate. Patient is able to contract for safety during his hospitalization. Insight and judgment is limited. ASSESSMENT: 1. Depression. 2. Suicidal ideation. PLAN: 1. Continue Paxil 20 mg by mouth every morning. 2. Continue Seroquel 50 mg by mouth nightly. 3. Continue Trileptal 300 mg by mouth twice a day. 4. Continue Lamictal 25 mg by mouth twice a day. 5. Continue medication management, individual and group therapy.
[2017-06-29 06:41] VITALS: BP 126/58
[2017-06-29] MEDS: NICOTINE POLACRILEX 2 MG GUM PO PRN ×3 (08:27→20:06)
[2017-06-29] MEDS: PARoxetine 20 MG TAB PO SCH (08:27)
[2017-06-29] MEDS: OXcarbazepine 300 MG TAB PO SCH ×2 (08:27→20:06)
[2017-06-29] MEDS: lamoTRIgine 25 MG TAB PO SCH ×2 (08:27→20:06)
[2017-06-29 18:00] VITALS: BP 155/85
[2017-06-29] MEDS: QUEtiapine FUMARATE 50 MG TAB PO SCH ×2 (20:06→22:15)
[2017-06-30 06:00] VITALS: BP 122/57
[2017-06-30] MEDS: PARoxetine 20 MG TAB PO SCH (08:08)
[2017-06-30] MEDS: OXcarbazepine 300 MG TAB PO SCH ×2 (08:08→20:40)
[2017-06-30] MEDS: lamoTRIgine 25 MG TAB PO SCH ×2 (08:08→20:40)
[2017-06-30] MEDS: NICOTINE POLACRILEX 2 MG GUM PO PRN ×3 (08:08→20:40)
[2017-06-30 18:00] VITALS: BP_SYST 152; BP_SYST 158; BP_DIAS 69; BP_DIAS 71
[2017-06-30] MEDS: QUEtiapine FUMARATE 50 MG TAB PO SCH (20:40)
[2017-07-01 06:33] VITALS: BP 115/57
[2017-07-01] MEDS: OXcarbazepine 300 MG TAB PO SCH (08:36)
[2017-07-01] MEDS: PARoxetine 20 MG TAB PO SCH (08:36)
[2017-07-01] MEDS: NICOTINE POLACRILEX 2 MG GUM PO PRN ×2 (08:36→20:18)
[2017-07-01] MEDS: lamoTRIgine 25 MG TAB PO SCH ×2 (08:37→20:19)
--- NOTE | 2017-07-01 16:28 | MHIPN ---
DATE: 07/01/2017 HISTORY: A 27-year-old male with history of depression admitted to our unit after he made a noose and was thinking about hanging himself. MEDICATIONS: - Paxil 20 mg by mouth every morning - Seroquel 50 mg by mouth at bedtime - Trileptal 300 mg by mouth twice a day - Lamictal 25 mg by mouth twice a day SUBJECTIVE: "I changed my mind and I don't want to go to long-term." OBJECTIVE: The patient continues to report depression, although he says that he is no longer suicidal. He is focused on discharge and may be minimizing symptoms. There is no evidence of psychotic symptoms. No auditory or visual hallucinations or delusions. The patient is denying side effects from the medication. MENTAL STATUS EXAMINATION: The patient is dressed in [facility]. The patient has fair eye contact. His speech is slow and monotone. Mood is depressed and anxious. Affect is restricted. No evidence of delusions or hallucinations. Memory is fair. The patient is fully oriented. Associations are intact. Thinking is logical. Thought content is appropriate. The patient is able to contract for safety during the hospitalization. Insight and judgment is limited. ASSESSMENT: 1. Depression. 2. Suicidal ideation. PLAN: 1. Increase Paxil to 30 mg by mouth every morning. 2. Continue Seroquel 50 mg by mouth at bedtime. 3. Increase Trileptal to 450 mg by mouth twice a day. 4. Continue Lamictal 25 mg by mouth twice a day. 5. Continue medication management, individual and group therapy.
[2017-07-01 18:00] VITALS: BP 143/74
[2017-07-01] MEDS: QUEtiapine FUMARATE 50 MG TAB PO SCH (20:19)
[2017-07-01] MEDS: OXcarbazepine 150 MG TAB PO SCH (20:19)
[2017-07-02 06:21] VITALS: BP 103/49
[2017-07-02] MEDS: lamoTRIgine 25 MG TAB PO SCH (08:08)
[2017-07-02] MEDS: OXcarbazepine 150 MG TAB PO SCH (08:08)
[2017-07-02] MEDS: NICOTINE POLACRILEX 2 MG GUM PO PRN (08:08)
[2017-07-02] MEDS ORDERED: PARoxetine 10MG TABLET PO SCH (09:00)
[2017-07-02] MEDS ORDERED: PAXI30TA11 PO (11:28)
[2017-07-02] MEDS ORDERED: OXCA150T PO (11:28)
[2017-07-02] MEDS ORDERED: LAMI25TA PO (11:28)
[2017-07-02] MEDS ORDERED: QUET5TAB PO (11:29)
--- NOTE | 2017-07-02 15:34 | MHDS ---
DATE OF ADMISSION: 06/23/2017 DATE OF DISCHARGE: 07/02/2017 LEGAL STATUS AT ADMISSION: 9.39 legal status. HISTORY OF PRESENT ILLNESS: A 27-year-old male with a history of depression, admitted to our unit on a 9.39 legal status. According to the records, patient was brought to our emergency department by [place] [employer] to be evaluated for depression and suicidal ideation. Patient stated that "I was going to kill myself." He was making statement, such as "want to every day of my life." Patient tied a noose with an extension cord; however, he did not follow through, thinking about his 3-year-old daughter. He reported that he misses his five children, that they reside with the children's mother in [place]. "I just have nothing to live for." Patient stated that he cannot identify any specific stress. Patient reports mood swings, especially toward the depressive end of the spectrum, and he cannot identify any specific trigger. Says that "they come out of the blue." During the evaluation at the emergency department (ED), he just reported that he broke his urine sample cup and cut himself superficially on the left arm. Patient also reported that he used to self-mutilate. Patient was in our unit in February 2017. During the interview this time, patient reports feeling depressed with low energy. Patient reports that he stopped drinking alcohol since February, when he left our unit, and only did it before this admission. He says that his depressive episodes are not reactive, that they are coming out of the blue, and cannot specify stressors. He says that he and his ex- are getting along well and do not see problems or frustration in this regard. He stated that his parents were both diagnosed with bipolar disorder. During the last admission in our unit, he was started on Lamictal but stated that when he returned to [place], he asked the doctor to discontinue it. During the interview, there was not evidence of psychotic symptoms. No auditory or visual hallucinations or delusions. LABORATORY DATA: At admission, his CBC was unremarkable except white blood cells were 15.1. CMP within normal limits except AST and ALT of 70 and 110, respectively. His urine drug screen was negative. His blood alcohol level was 0.16. HOSPITAL COURSE: After the first interview and given the fact that the patient was having mood swings toward depression with no triggers and out of the blue, and he has been on antidepressant, it was decided to start the patient on mood stabilizer. The strategy was to start Trileptal and also Lamictal, and when the Lamictal is at therapeutic level, to taper off the Trileptal. Patient agreed to do so; however, he has been changing his mind throughout the hospitalization. Patient was also started on Paxil up to 30 mg by mouth every morning, increasing slowly. His Seroquel has been decreased to 50 mg by mouth at bedtime plus 50 mg as needed for insomnia, but he has been sleeping okay without the need of the second dose of Seroquel. Patient has been improving slowly. He has been able to participate a little better in one-to-one therapy. It was discussed with the patient that one of the problems was the fact that he was not forthcoming with information in a way that the therapist could get to know him. As an example, he said that he noticed that his mood was getting depressed by Saturday and was getting worse, but instead of asking for help, he waited until finally he had to be admitted. We discussed this issue as an example and the fact that if he ended up in the hospital with suicidal thoughts and very depressed, that the therapist could feel more comfortable if he could make an intervention before he had the suicidal thoughts and had to come to the hospital, so a matter of trust in him when he was getting depressed and suicidal was an issue. He understood that. After a chain of command meeting, he decided to go to long-term treatment; however, he changed his mind later on and refused to go. On 07/02/2017 after the interview patient continues to deny suicidal ideation. Patient said that has not had any suicidal thoughts in several days an that he would like to continue his treatment in outpatient basis. We discussed the fact that he was now taking mood stabilizer and would be positive to see if Lamictal is a good choice to prevent these mood swings and depressive episodes. He decided to give it a try. He had no complications during this hospital admission. Denied side effect from the medication except mild sweaty palms. He was sleeping well with a 50 mg dose of Seroquel. He was taking 200 plus melatonin in outpatient setting. I discussed the fact that alcohol was there at admission, and that alcohol can be a risky factor. Patient said that he has not been using alcohol at all, but when he started feeling depressed, he drank during that day before admission. Again, at the moment of discharge patient is in a stable condition with no suicidal or homicidal ideation. No auditory or visual hallucinations or delusions, and a chain of command meeting was held before discharge. MENTAL STATUS EXAMINATION AT DISCHARGE: Patient is dressed in [facility]. Patient is cooperative. His speech is somewhat monotone. Has fair eye contact. Mood is reported as mildly depressed. Affect is appropriate and congruent with mood. Patient is oriented to time, place, person, and situation. Maintains attention and concentration correctly. Instant recall, recent and remote memory are intact. Thought process are coherent, logical, and goal directed. Patient does not have auditory or visual hallucinations. Patient does not paranoid, persecutory, somatic, grandiose, or spiritism delusions. Patient denies suicidal or homicidal ideation. Judgment and insight are fair. DISCHARGE DIAGNOSES: Mcleod I: Major depressive disorder, rule out bipolar disorder, depressive episode. Mcleod II: Deferred. Mcleod III: None acute. DISCHARGE MEDICATIONS: - Paxil 30 mg by mouth every morning - Trileptal 450 mg by mouth twice a day to be tapered down once the Lamictal is at therapeutic level - Lamictal 25 mg by mouth twice a day to increase up to therapeutic dose - Seroquel 50 mg by mouth at bedtime CONDITION ON DISCHARGE: Stable. No auditory or visual hallucinations. No delusions. No suicidal or homicidal ideation. INSTRUCTIONS TO THE PATIENT: Patient is to continue taking his medications as prescribed and followup appointment s. He is advised to maintain absolute sobriety from drugs and alcohol. Patient has scheduled appointment for medication management and individual group therapy.
== END 2017-07-02 13:20 | disposition home or self-care (01) | DRG 881 ==
LOC: M ED 11:51 → M ED INP 18:16 → M PSY 20:38
PROVIDERS: ADMIT Psychiatry & Neurology Psychiatry; ATTEND Psychiatry & Neurology Psychiatry
DX: F32.9 Major depressive disorder, single episode, unspecified (principal); F31.9 Bipolar disorder, unspecified; Z79.899 Other long term (current) drug therapy; Z91.018 Allergy to other foods; Z88.8 Allergy status to other drugs, medicaments and biological substances